=== PATIENT | male | born 1985 | race Caucasian/White ===

== ENCOUNTER 2022-02-16 09:34 | Outpatient (REF) | payer OTHER, BC, SELFPAY ==
--- NOTE | ~2022-02-16 | XR_ITS ---
EXAMINATION: XR CERVICAL SPINE CLINICAL INFORMATION: Neck pain COMPARISON: None TECHNIQUE: 7 views of the cervical spine, inclusive of flexion and extension and bilateral oblique views, were obtained. FINDINGS: Bone alignment is normal. No fracture or dislocation is seen. Disc spaces are normal. No instability on flexion-extension. Neural foramen are patent. Prevertebral soft tissues are normal. XR/XR cervical spine w flex/ext IMPRESSION: Unremarkable examination.
== END 2022-02-16 09:35 | disposition home or self-care (01) ==
LOC: HO.XRAY 09:34
PROVIDERS: PCP Internal Medicine; Visit Provider Nurse Practitioner Family
DX: M54.2 Cervicalgia (principal); F07.81 Postconcussional syndrome; R20.2 Paresthesia of skin
CPT/HCPCS: 72052; 99202

== ENCOUNTER → 2022-04-27 09:39 | Outpatient (BNVA) | payer OTHER, SELFPAY | PROVIDERS: PCP Internal Medicine; Visit Provider Nurse Practitioner Family | DX: M54.2 Cervicalgia (principal); R20.2 Paresthesia of skin; F07.81 Postconcussional syndrome | CPT/HCPCS: 99212 ==

== ENCOUNTER → 2022-06-29 08:35 | Outpatient (BNVA) | payer OTHER, SELFPAY | PROVIDERS: PCP Internal Medicine; Visit Provider Nurse Practitioner Family | DX: F07.81 Postconcussional syndrome (principal); M54.2 Cervicalgia; R20.2 Paresthesia of skin | CPT/HCPCS: 99212 ==